=== PATIENT | male | born 1990 | race African-American/Black ===

== ENCOUNTER 2017-05-19 23:10 | Emergency (ER) ==
[~2017-05-19 23:10] MED LIST: DEXTROSE 50%-WATER ABBOJECT IVP STA; SODIUM BICARBONATE 7.5% IVP STA; SODIUM CHLORIDE 1,000 ML IV STA; SOLU-MEDROL 125 MG IVP STA
[2017-05-19] MEDS ORDERED: EPINEPHRINE 1:10,000 SYRINGE IV STA (23:15)
[2017-05-19] MEDS ORDERED: SODIUM BICARBONATE 7.5% IVP STA ×2 (23:15→23:30)
[2017-05-19] MEDS: EPINEPHRINE 1:10,000 SYRINGE IV PRN ×3 (23:18→23:31)
[2017-05-19] MEDS: SODIUM BICARBONATE 7.5% IVP PRN ×2 (23:19→23:37)
[2017-05-19] MEDS: DEXTROSE 50%-WATER ABBOJECT IVP STA (23:29)
[2017-05-19 23:33] VITALS: BP 0/0; TEMP 96.7; BMI 25.8
--- NOTE | 2017-05-19 23:42 | ED.PDOC ---
General ED Provider: Dr. JIGNESH SMILEY Chief Complaint: Respiratory Complaint Stated Complaint: Patient was found with respiratory distress, EMT was called, he was intubated at the site, enroute, he was asystole, epi given and comoressions started./\ Time Seen by Physician: 23:37 Mode of Arrival: Walk-In Information Source: Patient Nursing and Triage Documentation Reviewed and Agree: Yes Cardiac Resuscitation - Cardiac Resuscitation/Physical Exam Onset/Duration: Minutes Witnessed Arrest: Yes Down-time Before BLS Initiated: seconds Airway Prehospital Findings: Reports: Patent Breathing Prehospital Findings: Reports: Apnea Circulation/Rhythm Prehospital Findings: Reports: Asystole Disability/Neurological Prehospital Findings: Reports: Responsive Airway Prehospital Intervention: Reports: Oral airway Breathing Prehospital Intervention: Reports: Intubation Circulation/Rhythm Prehospital Intervention: Reports: IV/IO placed, Epinephrine (1:1000) Breathing Prehospital Response: Present: ETT in airway, Equal breath sounds Circulation/Rhythm Prehospital Response: Present: Asystole Airway ED Findings: Patent Breathing ED Findings: Present: Apnea Circulation/Rhythm ED Findings: Present: Asystole Disability/Neurological ED Findings: Present: Unresponsive Breathing ED Intervention: Oxygen, Bag-valve mask Circulation/Rhythm ED Intervention: Chest compressions Circulation/Rhythm ED Response: Present: Asystole Right Pupil: Fixed, Dilated Left Pupil: Fixed, Dilated EMS/Code Sheet Reviewed: Yes Patient is a DNR: No Patient Has a Living Will: No Resuscitation Successful: No Terminated At: 23;38 Differential Diagnoses: Asystole, Respiratory Failure Past Medical History - Past Medical History Previously Healthy: Yes Endocrine: Reports: None Cardiovascular: Reports: None Respiratory: Reports: Asthma Hematological: Reports: None Gastrointestinal: Reports: None Genitourinary: Reports: None Neuro/Psych: Reports: None Musculoskeletal: Reports: None Cancer: Reports: None - Surgical History General Surgical History: Reports: None - Family History Family History: Reports: None - Social History Smoking Status: Unknown if ever smoked Hx Substance Use: No (unknown) Alcohol Screening: None - Immunizations Tetanus Shot up to Date: No (unknown) Critical Care Note - Critical Care Note Total Time (mins): 40 Course - Course Hematology/Chemistry: 05/19/17 23:46 05/19/17 23:46 Orders, Labs, Meds: Lab Review 05/19/17 05/19/17 23:46 23:46 WBC 5.94 RBC 4.35 L Hgb 13.5 L Hct 39.9 L MCV 91.7 MCH 31.0 MCHC 33.8 RDW Coeff of Devan 13.8 Plt Count 177 Immature Gran % (Auto) 0.5 Neut % (Auto) 71.5 Lymph % (Auto) 15.2 Mower % (Auto) 10.3 H Eos % (Auto) 1.7 Baso % (Auto) 0.8 Immature Gran # (Auto) 0.0 Neut # 4.3 Lymph # 0.9 Mower # 0.6 Eos # 0.1 Baso # 0.1 Sodium 145 Potassium 4.8 Chloride 103 Carbon Dioxide 27 Anion Gap 19.8 BUN 10 Creatinine 1.28 H Estimated GFR (MDRD) 82.00 BUN/Creatinine Ratio 7.81 Glucose 62 L Calcium 10.1 Total Bilirubin 0.61 AST 28 ALT 27 Alkaline Phosphatase 91 Total Creatine Kinase 331 CK-MB (CK-2) 1.9 CK-MB (CK-2) % 0.42553 Troponin I 0.0140 Total Protein 8.7 H Albumin 4.5 Globulin 4.2 Albumin/Globulin Ratio 1.07 Plasma/Serum Alcohol < 10.0 Orders Category Date Time Status BLOOD ALCOHOL Stat LAB 05/19/17 23:46 Completed CBC W/ AUTO DIFF Stat LAB 05/19/17 23:46 Completed COMPREHENSIVE METABOLIC PANEL Stat LAB 05/19/17 23:46 Completed CREATINE KINASE Stat LAB 05/19/17 23:46 Completed TROPONIN I Stat LAB 05/19/17 23:46 Completed Dextrose 50 % in Water [Dextrose 50%-Water Abboject] MEDS 05/19/17 23:10 Discontinued 50 ml IVP ONCE STA Dextrose 50 % in Water [Dextrose 50%-Water Abboject] MEDS 05/20/17 01:24 Discontinued 50 ml IVP ONCE STA Epinephrine [Epinephrine 1:10,000 Syringe] MEDS 05/19/17 23:15 Discontinued 1 mg IV ONCE PRN Epinephrine [Epinephrine 1:10,000 Syringe] MEDS 05/19/17 23:15 Discontinued 1 mg IV ONCE STA Epinephrine [Epinephrine 1:10,000 Syringe] MEDS 05/20/17 01:22 Discontinued 1 mg IV ONCE STA Epinephrine [Epinephrine 1:10,000 Syringe] MEDS 05/20/17 01:22 Discontinued 1 mg IV ONCE STA Epinephrine [Epinephrine 1:10,000 Syringe] MEDS 05/20/17 01:23 Discontinued 1 mg IV ONCE STA Epinephrine [Epinephrine 1:10,000 Syringe] MEDS 05/20/17 01:25 Discontinued 1 mg IV ONCE STA Methylprednisolone Sod Succ/Pf [Solu-Medrol 125 mg] MEDS 05/19/17 23:10 Discontinued 125 mg IVP ONCE STA Methylprednisolone Sod Succ/Pf [Solu-Medrol 125 mg] MEDS 05/20/17 01:19 Discontinued 125 mg IVP ONCE STA Sodium Bicarb 7.5% [Sodium Bicarbonate 7.5%] MEDS 05/23/17 08:36 Discontinued 44.6 meq IVP ONCE PRN Sodium Bicarb 7.5% [Sodium Bicarbonate 7.5%] MEDS 05/19/17 23:10 Discontinued 44.6 meq IVP ONCE STA Sodium Bicarb 7.5% [Sodium Bicarbonate 7.5%] MEDS 05/19/17 23:15 Discontinued 44.6 meq IVP ONCE STA Sodium Bicarb 7.5% [Sodium Bicarbonate 7.5%] MEDS 05/19/17 23:30 Discontinued 44.6 meq IVP ONCE STA Sodium Bicarb [Sodium Bicarb Pediatric 4.2%] MEDS 05/20/17 01:20 Discontinued 5 meq IVP ONCE STA Sodium Bicarb [Sodium Bicarb Pediatric 4.2%] MEDS 05/20/17 01:23 Discontinued 5 meq IVP ONCE STA Sodium Bicarb [Sodium Bicarb Pediatric 4.2%] MEDS 05/20/17 01:26 Discontinued 5 meq IVP ONCE STA Sodium Chloride 0.9% [Sodium Chloride] 1,000 ml MEDS 05/19/17 23:10 Discontinued IV BOLUS Sodium Chloride 0.9% [Sodium Chloride] 1,000 ml MEDS 05/20/17 01:21 Discontinued IV BOLUS CHEST, 1V AP ONLY Stat RADS 05/20/17 00:04 Completed Medications Discontinued Medications Generic Name Dose Route Start Last Admin Trade Name Freq PRN Reason Stop Dose Admin Dextrose 50 ml 05/20/17 01:24 Dextrose 50%-Water Abboject IVP 05/20/17 01:25 ONCE STA Dextrose 50 ml 05/19/17 23:10 05/19/17 23:29 Dextrose 50%-Water Abboject IVP 05/19/17 23:11 50 ml ONCE STA Administration Epinephrine HCl 1 mg 05/20/17 01:22 Epinephrine 1:10,000 Syringe IV 05/20/17 01:23 ONCE STA Epinephrine HCl 1 mg 05/20/17 01:22 Epinephrine 1:10,000 Syringe IV 05/20/17 01:23 ONCE STA Epinephrine HCl 1 mg 05/20/17 01:23 Epinephrine 1:10,000 Syringe IV 05/20/17 01:24 ONCE STA Epinephrine HCl 1 mg 05/20/17 01:25 Epinephrine 1:10,000 Syringe IV 05/20/17 01:26 ONCE STA Epinephrine HCl 1 mg 05/19/17 23:15 05/19/17 23:14 Epinephrine 1:10,000 Syringe IV 05/19/17 23:16 1 mg ONCE STA Administration Epinephrine HCl 1 mg 05/19/17 23:15 05/19/17 23:31 Epinephrine 1:10,000 Syringe IV 1 mg ONCE PRN Administration code Sodium Chloride 1,000 mls @ 1,000 mls/hr 05/20/17 01:21 Sodium Chloride IV 05/20/17 02:20 BOLUS STA Sodium Chloride 1,000 mls @ 1,000 mls/hr 05/19/17 23:10 05/19/17 23:12 Sodium Chloride IV 05/20/17 00:09 1,000 mls/hr BOLUS STA Administration Methylprednisolone Sodium Succinate 125 mg 05/20/17 01:19 Solu-Medrol 125 Mg IVP 05/20/17 01:20 ONCE STA Methylprednisolone Sodium Succinate 125 mg 05/19/17 23:10 05/19/17 23:12 Solu-Medrol 125 Mg IVP 05/19/17 23:11 125 mg ONCE STA Administration Sodium Bicarbonate 5 meq 05/20/17 01:20 Sodium Bicarb Pediatric 4.2% IVP 05/20/17 01:21 ONCE STA Sodium Bicarbonate 5 meq 05/20/17 01:23 Sodium Bicarb Pediatric 4.2% IVP 05/20/17 01:24 ONCE STA Sodium Bicarbonate 5 meq 05/20/17 01:26 Sodium Bicarb Pediatric 4.2% IVP 05/20/17 01:27 ONCE STA Sodium Bicarbonate 44.6 meq 05/19/17 23:15 05/19/17 23:12 Sodium Bicarbonate 7.5% IVP 05/19/17 23:16 44.6 meq ONCE STA Administration Sodium Bicarbonate 44.6 meq 05/23/17 08:36 Sodium Bicarbonate 7.5% IVP ONCE PRN code Sodium Bicarbonate 44.6 meq 05/19/17 23:10 05/19/17 23:19 Sodium Bicarbonate 7.5% IVP 05/19/17 23:11 44.6 meq ONCE STA Administration Sodium Bicarbonate 44.6 meq 05/19/17 23:30 05/19/17 23:37 Sodium Bicarbonate 7.5% IVP 05/19/17 23:31 44.6 meq ONCE STA Administration Vital Signs: Temp Pulse Resp BP Pulse Ox 05/19/17 23:16 96.7 F L 0 L 0 L 0/0 L 0 L Departure - Departure Time of Disposition: 23:50 Disposition: Discharge Problem: Asystole, Respiratory arrest Instructions: Asthma (ED) Condition: Pt referred to PMD for follow-up: No Disposition Discussed With: Family
[2017-05-19 23:52] LABS: BASOPHILS # (AUTO) 0.1 K/uL (0-0.2); BASOPHILS % (AUTO) 0.8 % (0.0-3.0); EOSINOPHILS # (AUTO) 0.1 K/ul (0.0-0.7); EOSINOPHILS % (AUTO) 1.7 % (0.0-7.0); HEMATOCRIT 39.9 % (42.0-52.0); HEMOGLOBIN 13.5 g/dl (14.0-18.0); IMMATURE GRANULOCYTE % (AUTO) 0.5 % (0.0-5.0); LYMPHOCYTES # (AUTO) 0.9 K/uL (0.60-3.4); LYMPHOCYTES % (AUTO) 15.2 (10.0-50.0); MEAN CORPUSCULAR HGB CONC 33.8 (31.8-35.4); MEAN CORPUSCULAR VOLUME 91.7 fl (80.0-94.0); MONOCYTES # (AUTO) 0.6 K/uL (0.4-2.0); MONOCYTES % (AUTO) 10.3 (0-10); NEUTROPHILS # (AUTO) 4.3 K/ul (2.0-6.9); NEUTROPHILS % (AUTO) 71.5; PLATELET COUNT 177 10^3/uL (140-440); RED BLOOD COUNT 4.35 10^6/ul (4.70-6.10); WHITE BLOOD COUNT 5.94 K/ul (4.2-10.2)
[2017-05-20 00:08] LABS: ALANINE AMINOTRANSFERASE 27 U/L (12-78); ALBUMIN 4.5 g/dL (3.4-5.0); ALBUMIN/GLOBULIN RATIO 1.07; ALKALINE PHOSPHATASE 91 U/L (50-136); ANION GAP 19.8; ASPARTATE AMINO TRANSFERASE 28 U/L (15-37); BILIRUBIN,TOTAL 0.61 mg/dL (0.00-1.20); BLOOD UREA NITROGEN 10 mg/dL (7-18); BUN/CREATININE RATIO 7.81; CALCIUM 10.1 mg/dL (8.2-10.2); CARBON DIOXIDE 27 mmol/L (21-32); CHLORIDE 103 mmol/L (98-107); CREATINE KINASE 331 U/L; CREATININE 1.28 mg/dL (0.60-1.10); GLUCOSE 62 mg/dL (70-100); POTASSIUM 4.8 mmol/L (3.5-5.1); SODIUM 145 mmol/L (136-145); TOTAL PROTEIN 8.7 g/dL (6.4-8.2)
[2017-05-20 00:09] LABS: CREATINE KINASE MB 1.9 ng/ml (0.0-3.6)
--- NOTE | 2017-05-20 01:09 | DI ---
EXAM: Chest, single view, 05/20/2017 HISTORY: Shortness of breath COMPARISON: None. FINDINGS / IMPRESSION: The heart size appears within normal limits. Endotracheal tube appears well positioned. Hazy opacity throughout the right chest. This is likely due to patient rotation. No pulmonary consolidation. No pleural effusion or pneumothorax.
[2017-05-20] MEDS ORDERED: SOLU-MEDROL 125 MG IVP STA (01:19)
[2017-05-20] MEDS ORDERED: [UNRECOGNIZED DRUG - OTHER] IVP STA ×3 (01:20→01:26)
[2017-05-20] MEDS ORDERED: SODIUM CHLORIDE 1,000 ML IV STA (01:21)
[2017-05-20] MEDS ORDERED: EPINEPHRINE 1:10,000 SYRINGE IV STA ×4 (01:22→01:25)
== END 2017-05-19 23:38 | disposition expired ==
LOC: ED 23:10 → EDBD 23:10 → ED 05-20 01:35
DX: I46.9 Cardiac arrest, cause unspecified (principal); R09.2 Respiratory arrest; J45.901 Unspecified asthma with (acute) exacerbation
CPT/HCPCS: 31500; 36415; 80053; 80307; 82550; 82553; 84484; 85025; 96361; 96374; 96375; 99285